=== PATIENT | female | born 1955 | race Caucasian/White ===

== ENCOUNTER → 2016-09-09 | Outpatient (CLI) | payer BC | LOC: MC.RAD 09:20 | DX: Z12.31 Encounter for screening mammogram for malignant neoplasm of breast (principal) ==

== ENCOUNTER → 2018-01-09 | Outpatient (CLI) | payer BC | LOC: MC.RAD 14:13 | DX: Z12.31 Encounter for screening mammogram for malignant neoplasm of breast (principal) ==

== ENCOUNTER → 2019-04-16 | Outpatient (CLI) | payer MEDICARE, BC | LOC: MC.RAD 14:42 | DX: Z12.31 Encounter for screening mammogram for malignant neoplasm of breast (principal); Z00.00 Encounter for general adult medical examination without abnormal findings ==

== ENCOUNTER 2019-04-24 11:29 | Emergency (ER) | payer MEDICARE, BC ==
[~2019-04-24] VITALS: Ht 167.6 cm; Wt 100.0 kg
[2019-04-24 11:50] VITALS: BP 134/64; TEMP 99
[2019-04-24] MEDS ORDERED: ACCUPRIL40MGTAB (13:34)
[2019-04-24] MEDS ORDERED: SYNTHROID0.112 MG/T PO (13:34)
[2019-04-24] MEDS ORDERED: ZOCOR 20MG20 MG PO (13:34)
[2019-04-24] MEDS ORDERED: NORVASC 10MG10 MG PO (13:35)
[2019-04-24] MEDS ORDERED: ZYRTEC5 MG PO (13:35)
[2019-04-24] MEDS ORDERED: FOSAMAX 70MG TA70 MG PO (13:35)
[2019-04-24] MEDS ORDERED: MASON NATURAL2000 IU (13:36)
[2019-04-24] MEDS ORDERED: KENALOG DENTAL P5 GM DT (13:36)
[2019-04-24] MEDS ORDERED: FLONASEALLERGY NS (13:36)
[2019-04-24] MEDS ORDERED: CENTRUM MULTIG80 MCG PO (13:36)
[2019-04-24] MEDS ORDERED: PERCOCET 325 MG1 TA2 PO (14:44)
[2019-04-24 15:11] VITALS: PULSE 95
== END 2019-04-24 15:11 | disposition home or self-care (01) ==
LOC: COL.ER 11:29
DX: S02.5XXA Fracture of tooth (traumatic), initial encounter for closed fracture (principal); S62.102A Fracture of unspecified carpal bone, left wrist, initial encounter for closed fracture; S01.511A Laceration without foreign body of lip, initial encounter; Z79.51 Long term (current) use of inhaled steroids; Z23 Encounter for immunization; W01.0XXA Fall on same level from slipping, tripping and stumbling without subsequent striking against object, initial encounter; Y92.410 Unspecified street and highway as the place of occurrence of the external cause
CPT/HCPCS: J2270; Q4021

== ENCOUNTER → 2020-04-25 | Outpatient (CLI) | payer MEDICARE, BC ==
[~2020-04-25] MED LIST: ACCUPRIL40MGTAB; CENTRUM MULTIG80 MCG PO; FLONASEALLERGY NS; FOSAMAX 70MG TA70 MG PO; KENALOG DENTAL P5 GM DT; MASON NATURAL2000 IU; NORVASC 10MG10 MG PO; PERCOCET 325 MG1 TA2 PO; SYNTHROID0.112 MG/T PO; ZOCOR 20MG20 MG PO; ZYRTEC5 MG PO
== END ==
LOC: MC.RAD 14:45
DX: Z12.31 Encounter for screening mammogram for malignant neoplasm of breast (principal)

== ENCOUNTER → 2021-07-12 | Outpatient (CLI) | payer MEDICARE, BC | LOC: MC.RAD 15:18 | DX: Z12.31 Encounter for screening mammogram for malignant neoplasm of breast (principal) ==

== ENCOUNTER → 2022-02-22 | Outpatient (CLI) | payer MEDICARE, BC | LOC: COL.RAD 15:04 | DX: N95.0 Postmenopausal bleeding (principal) ==

== ENCOUNTER → 2022-07-15 | Outpatient (CLI) | payer MEDICARE, BC | LOC: MC.RAD 14:48 | DX: Z12.31 Encounter for screening mammogram for malignant neoplasm of breast (principal) ==

== ENCOUNTER → 2023-07-16 | Outpatient (CLI) | payer MEDICARE, BC | LOC: MC.RAD 14:43 | DX: Z12.31 Encounter for screening mammogram for malignant neoplasm of breast (principal) ==

== ENCOUNTER 2023-10-13 14:42 | Outpatient (CLI) | payer MEDICARE, BC ==
[~2023-10-13] VITALS: Ht 167.6 cm; Wt 103.6 kg
[~2023-10-13 14:42] MED LIST changes: +CENTRUM1 TA1 PO; +EVENITY (2210 MG/2.3 SQ; +FLONASE SENSIM9.9 ML NS; +MASON NATURAL2000 IU PO; +SYNTHROID0.1 MG/TAB PO; -SYNTHROID0.112 MG/T PO; +ZESTRIL40 MG PO; +ZYRTEC 10MG10 MG PO
[2023-10-13 14:53] VITALS: BP 155/74; PULSE 100; TEMP 98.6
[2023-10-13] MEDS ORDERED: ADULT MULTIVIT1 EACH PO (14:56)
[2023-10-13] MEDS ORDERED: LUTEIN20 M1 PO (15:02)
[2023-10-13] MEDS ORDERED: Romosozumab-aqqg 210 MG/2.34 ML 2-Syringe KIT SQ ONE (15:15)
--- NOTE | 2023-10-13 15:23 | NUR ---
Pt tolerated evenity without issue. She exits dept with steady gait.
== END 2023-10-13 15:24 | disposition home or self-care (01) ==
LOC: EUO 14:42
DX: M81.0 Age-related osteoporosis without current pathological fracture (principal)
CPT/HCPCS: J3111

== ENCOUNTER 2023-12-11 14:36 | Outpatient (RCR) | payer MEDICARE, BC ==
[~2023-12-11] VITALS: Ht 167.6 cm; Wt 104.5 kg
[~2023-12-11 14:36] MED LIST changes: +ADULT MULTIVIT1 EACH PO; +LUTEIN20 M1 PO
[2023-12-11] MEDS ORDERED: Romosozumab-aqqg 210 MG/2.34 ML 2-Syringe KIT SQ ONE (14:45)
[2023-12-11 14:54] VITALS: BP 131/77; PULSE 95; TEMP 98.3
--- NOTE | 2023-12-11 15:03 | NUR ---
PT TOLERATED INJECTIONS WELL. VS REMAINED WITHIN NORMAL LIMITS AND PT AMBULATED INDEPENDENTLY TO MAIN LOBBY UPON DISCHARGE. PT FREE FROM CONCERNS AND COMPLAINTS.
== END 2023-12-11 15:20 | disposition home or self-care (01) ==
LOC: EUO 14:36
DX: M81.0 Age-related osteoporosis without current pathological fracture (principal)
CPT/HCPCS: J3111

== ENCOUNTER 2024-04-05 14:43 | Outpatient (RCR) | payer MEDICARE, BC ==
[~2024-04-05] VITALS: Ht 167.6 cm; Wt 105.0 kg
[2024-04-05 15:00] VITALS: BP 151/77; PULSE 98; TEMP 98.4
[2024-04-05] MEDS ORDERED: Romosozumab-aqqg 210 MG/2.34 ML 2-Syringe KIT SQ ONE (15:00)
== END 2024-04-05 15:10 | disposition home or self-care (01) ==
LOC: EUO 14:43
DX: M81.0 Age-related osteoporosis without current pathological fracture (principal)
CPT/HCPCS: J3111